=== PATIENT | female | born 1970 | race Native Hawaiian/Other Pacific Islander ===

== ENCOUNTER 2019-02-06 11:11 | Outpatient (CLI) | payer OTHER ==
[~2019-02-06 11:11] MED LIST: FISH OIL1000 M1 OR; FLEXERIL5 MG PO; HYDR25TA15 PO; LEVO0.0218 PO; LOFIBRA160 MG PO; LOTENSIN HCT1 TA1 PO; LOTENSIN HCT1 TAB PO; MULTI VITAMIN/MINERA PO; PRAVACHOL20 MG PO; RELPAX40 MG PO; TRIM800T12 PO; VIT E COMPLX400 UNIT OR
[2019-02-06 11:39] LABS: PLATELET COUNT 217 K/uL (152-353)
[2019-02-06 11:50] LABS: POTASSIUM 3.8 mmol/L (3.6-5.2)
== END 2019-02-06 19:34 | disposition home or self-care (01) ==
LOC: LABW 11:11
PROVIDERS: Internal Medicine
DX: Z79.899 Other long term (current) drug therapy (principal); I10 Essential (primary) hypertension
CPT/HCPCS: 36415; 80053; 81000; 82024; 82043; 82088; 82533; 82570; 83036; 83835; 84155; 84244; 84436; 84443; 85027

== ENCOUNTER 2019-04-26 08:31 | Outpatient (CLI) | payer OTHER | END 2019-04-26 22:37 | disposition home or self-care (01) | LOC: MRI 08:31 | DX: M25.562 Pain in left knee (principal) ==

== ENCOUNTER 2021-06-01 14:29 | Outpatient (CLI) | payer OTHER | END 2021-06-01 19:46 | disposition home or self-care (01) | LOC: RESP 14:29 | PROVIDERS: ATTEND Internal Medicine Cardiovascular Disease | DX: R60.9 Edema, unspecified (principal); I10 Essential (primary) hypertension ==

== ENCOUNTER 2021-12-07 13:09 | Outpatient (CLI) | payer OTHER | END 2021-12-07 19:22 | disposition home or self-care (01) | LOC: RAD 13:09 | PROVIDERS: ATTEND Physician Assistant | DX: M25.561 Pain in right knee (principal); M25.562 Pain in left knee ==

== ENCOUNTER 2022-01-13 14:29 | Outpatient (CLI) | payer OTHER | END 2022-01-13 21:22 | disposition home or self-care (01) | LOC: MRI 14:29 | PROVIDERS: ATTEND Physician Assistant | DX: S83.232D Complex tear of medial meniscus, current injury, left knee, subsequent encounter (principal); Y92.89 Other specified places as the place of occurrence of the external cause ==

== ENCOUNTER 2022-04-20 07:13 | Outpatient (CLI) | payer OTHER ==
[2022-04-20 07:55] LABS: PLATELET COUNT 236 K/uL (152-353)
[2022-04-20 08:19] LABS: POTASSIUM 4.1 mmol/L (3.6-5.2)
== END 2022-04-20 19:25 | disposition home or self-care (01) ==
LOC: LABW 07:13
PROVIDERS: ATTEND Internal Medicine
DX: I10 Essential (primary) hypertension (principal); M25.561 Pain in right knee; Z79.899 Other long term (current) drug therapy
CPT/HCPCS: 36415; 80053; 81002; 82533; 83036; 84439; 84443; 85027

== ENCOUNTER 2022-05-13 08:26 | Outpatient (CLI) | payer OTHER | END 2022-05-13 21:21 | disposition home or self-care (01) | LOC: MRI 08:26 | PROVIDERS: ATTEND Physician Assistant | DX: S83.231A Complex tear of medial meniscus, current injury, right knee, initial encounter (principal); Y92.89 Other specified places as the place of occurrence of the external cause ==

== ENCOUNTER 2022-09-07 07:57 | Outpatient (CLI) | payer OTHER ==
[2022-09-07 08:23] LABS: PLATELET COUNT 224 K/uL (152-353)
[2022-09-07 08:43] LABS: POTASSIUM 4.2 mmol/L (3.6-5.2)
== END 2022-09-07 18:54 | disposition home or self-care (01) ==
LOC: LABW 07:57
PROVIDERS: ATTEND Internal Medicine
DX: I10 Essential (primary) hypertension (principal); K76.0 Fatty (change of) liver, not elsewhere classified; Z79.899 Other long term (current) drug therapy
CPT/HCPCS: 36415; 80053; 80061; 81002; 82533; 83036; 84439; 84443; 85027